=== PATIENT | male | born 1930 | race Caucasian/White ===

== ENCOUNTER 2016-09-24 15:33 | Emergency (ER) | payer MEDICARE, BC ==
[2016-09-24] MEDS ORDERED: Adacel (T-DAP) 0.5 ML VIAL ONE (16:05)
[2016-09-24] MEDS ORDERED: Bacitracin Zinc 1 Packet ONE (16:13)
--- NOTE | 2016-09-24 22:19 | RAD ---
CHEST TWO VIEWS: Date: 09-24-16 Comparison: 12-02-09 from [facility]. FINDINGS: The heart is borderline in size. The mediastinum shows no widening or shift. The trachea is midline. The lungs are clear except for perhaps a little bit of basilar scarring. No acute infiltrates, effu sions, or signs of pneumothorax were found. No fractures were appreciated. IMPRESSION: No acute finding. POS: HOME
--- NOTE | 2016-09-24 22:21 | RAD ---
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 There is narrowing of the radiocarpal joint and a suggestion that there may have been old trauma to the scaphoid. No acute fractures were demonstrated. IMPRESSION: 1. Chronic arthritic changes as noted. No definite acute findings. POS: HOME
== END 2016-09-24 16:31 | disposition home or self-care (01) ==
LOC: BURERS 15:33
DX: S61.412A Laceration without foreign body of left hand, initial encounter (principal); I25.2 Old myocardial infarction; I10 Essential (primary) hypertension; D69.6 Thrombocytopenia, unspecified; X58.XXXA Exposure to other specified factors, initial encounter
CPT/HCPCS: 71020; 90471; 90715